=== PATIENT | female | born 1990 | race Caucasian/White ===

== ENCOUNTER → 2020-10-15 13:32 | Outpatient (BNVA) | payer MEDICAID, SELFPAY | PROVIDERS: Family Provider Family Medicine; Visit Provider Obstetrics & Gynecology | DX: Z32.01 Encounter for pregnancy test, result positive (principal) | CPT/HCPCS: 81025 ==

== ENCOUNTER → 2020-11-07 13:39 | Outpatient (BNVA) | payer MEDICAID, SELFPAY | PROVIDERS: Family Provider Family Medicine; Visit Provider Obstetrics & Gynecology | DX: O26.891 Other specified pregnancy related conditions, first trimester (principal); Z67.91 Unspecified blood type, Rh negative | CPT/HCPCS: 80307; 84315; 85027; 86592; 86762; 86803; 86850; 86900; 87086; 87340 ==

== ENCOUNTER → 2020-11-19 10:55 | Outpatient (BNVA) | payer MEDICAID, SELFPAY | PROVIDERS: Family Provider Family Medicine; Visit Provider Obstetrics & Gynecology | DX: O26.891 Other specified pregnancy related conditions, first trimester (principal); Z67.91 Unspecified blood type, Rh negative; Z3A.00 Weeks of gestation of pregnancy not specified | CPT/HCPCS: 81000; 87491; 87591 ==

== ENCOUNTER → 2020-12-19 15:45 | Outpatient (BNVA) | payer MEDICAID, SELFPAY | PROVIDERS: Family Provider Family Medicine; Visit Provider Nurse Practitioner Women's Health | DX: O26.891 Other specified pregnancy related conditions, first trimester (principal); Z67.91 Unspecified blood type, Rh negative; Z3A.00 Weeks of gestation of pregnancy not specified | CPT/HCPCS: 81000 ==

== ENCOUNTER → 2021-01-09 12:05 | Outpatient (BNVA) | payer MEDICAID, SELFPAY | PROVIDERS: Family Provider Family Medicine; Visit Provider Obstetrics & Gynecology | DX: Z34.80 Encounter for supervision of other normal pregnancy, unspecified trimester (principal) | CPT/HCPCS: 81000 ==

== ENCOUNTER → 2021-02-12 13:01 | Outpatient (BNVA) | payer MEDICAID, SELFPAY | PROVIDERS: Family Provider Family Medicine; Visit Provider Nurse Practitioner Women's Health | DX: O44.00 Complete placenta previa NOS or without hemorrhage, unspecified trimester (principal); O26.891 Other specified pregnancy related conditions, first trimester; Z67.91 Unspecified blood type, Rh negative; O44.40 Low lying placenta NOS or without hemorrhage, unspecified trimester; Z3A.00 Weeks of gestation of pregnancy not specified | CPT/HCPCS: 81000 ==

== ENCOUNTER → 2021-03-05 09:50 | Outpatient (BNVA) | payer MEDICAID, SELFPAY | PROVIDERS: Family Provider Family Medicine; Visit Provider Obstetrics & Gynecology | DX: Z34.80 Encounter for supervision of other normal pregnancy, unspecified trimester (principal) | CPT/HCPCS: 81000; 82950; 85027; 86850 ==

== ENCOUNTER → 2021-03-19 11:06 | Outpatient (BNVA) | payer MEDICAID, SELFPAY | PROVIDERS: Family Provider Family Medicine; Visit Provider Obstetrics & Gynecology | DX: Z34.80 Encounter for supervision of other normal pregnancy, unspecified trimester (principal); Z78.9 Other specified health status | CPT/HCPCS: 81000 ==

== ENCOUNTER → 2021-04-02 09:50 | Outpatient (BNVA) | payer MEDICAID, SELFPAY | PROVIDERS: Family Provider Family Medicine; Visit Provider Obstetrics & Gynecology | DX: Z34.80 Encounter for supervision of other normal pregnancy, unspecified trimester (principal) | CPT/HCPCS: 81000 ==

== ENCOUNTER → 2021-05-02 15:40 | Outpatient (BNVA) | payer MEDICAID, SELFPAY | PROVIDERS: Family Provider Family Medicine; Visit Provider Nurse Practitioner Women's Health | DX: Z34.80 Encounter for supervision of other normal pregnancy, unspecified trimester (principal) | CPT/HCPCS: 84315; 87081 ==

== ENCOUNTER → 2021-05-08 14:35 | Outpatient (BNVA) | payer MEDICAID, SELFPAY | PROVIDERS: Family Provider Family Medicine; Visit Provider Nurse Practitioner Women's Health | DX: Z34.80 Encounter for supervision of other normal pregnancy, unspecified trimester (principal) | CPT/HCPCS: 81000 ==

== ENCOUNTER → 2021-05-17 13:11 | Outpatient (BNVA) | payer MEDICAID, SELFPAY | PROVIDERS: Family Provider Family Medicine; Visit Provider Obstetrics & Gynecology | DX: Z34.80 Encounter for supervision of other normal pregnancy, unspecified trimester (principal) | CPT/HCPCS: 87635 ==

== ENCOUNTER 2021-05-18 13:20 | Inpatient (IN) | payer MEDICAID, SELFPAY ==
[2021-05-18] VITALS (82 sets, daily range): BP systolic 98–158; BP diastolic 55–94; PULSE 80–196; RESP 16–18; TEMP 36–37.2; O2SAT 98–100; BMI 25.6
[2021-05-18 12:27] LABS: Actim Prom Positive
--- NOTE | 2021-05-18 13:18 | PM.OBGYHP ---
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 Denies bleeding and contractions are rare. Pt. relates good fm and LOF. Testing here was pos for rupture. FHT's baseline 140's with category 1 strip. 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 Estimated Delivery Date Method Current WG Current Estimate 05/27/21 LMP (Certain) 38w 5d Other Estimates 05/29/21 Ultrasound #1 38w 3d Expected Delivery Route/Plan Vaginal Specific Issues/Plans Grand multiparity with this delivery Rh NEGATIVE-RhoGam candidate Vitals/I&O/Wt Last Vital Signs Temp 96.8 F L 05/18/21 13:16 Pulse 98 05/18/21 13:08 BP 128/58 05/18/21 13:08 Weight last 48 hrs Weight 154 lb Physical Exam Const: COMMON NORMALS: no acute distress, patient oriented x3 and healthy appearing GENERAL APPEARANCE: cooperative and comfortable HENMT: COMMON NORMALS: normocephalic and moist oral mucous membranes Eye: COMMON NORMALS: Equal, round and reactive pupils present, EOMs intact bilaterally, conjunctivae normal and no scleral icterus Neck/C-Spine: COMMON NORMALS: no lymphadenopathy and supple GENERAL: Yes normal visual inspection and Yes trachea midline Resp: COMMON NORMALS: normal respiratory effort and No use of accessory muscles EFFORT & INSPECTION: Yes able to speak in complete sentences Cardio: COMMON NORMALS: regular rate JUGULAR VENOUS DISTENTION: no JVD GI: INSPECTION: Yes normal to inspection and Yes other (gravid uterus cwd) : COMMON NORMALS: Yes normal external appearance EXTERNAL FEMALE EXAM: Yes normal appearance of the urethra MANUAL OB EXAM: dilated 1 cm, effaced 50% and station -2 Extremity: COMMON NORMALS: normal to inspection, full ROM and no clubbing, cyanosis or edema Neuro: COMMON NORMALS: patient oriented x3, moves all extremities, no focal motor deficits, no sensory deficits noted and gait normal SENSORIUM/ORIENTATION: Yes alert Psych: COMMON NORMALS: mental status grossly normal, Normal thought process present, cooperative and normal affect Skin: COMMON NORMALS: no rashes or lesions noted and turgor normal Data : 05/18/21 12:40 A&P Assessment and plan (1) Spontaneous rupture of amniotic membranes: plan admission and pitocin induction of labor Status: Acute (2) Grand multiparity: anticipate , plans epidural, increased risk for hemorrhage Status: Acute (3) Supervision of other normal : Status: Acute (4) Rh negative status during : give rhogam as indicated Status: Acute Qualifiers: Trimester: first trimester Qualified Code(s): O26.891 - Other specified related conditions, first trimester; Z. - Unspecified blood type, Rh negative Attestations Medical Necessity Statement*: SROM at 38 weeks gestation admitted for labor induction Coding Level of Care Code Acute Authorization Manager for Chg Fwd Diagnoses Spontaneous rupture of amniotic membranes Grand multiparity Z64.1 Supervision of other normal Z34.80 Rh negative status during O26.891; Z67.91 Trimester: first trimester
[2021-05-18 13:23] LABS: Basophils % 0.4 %; Eosinophils # 0.1 10^3/uL (0.0-0.8); Eosinophils % 0.5 %; Hemoglobin 12.2 g/dL (11.5-15.3); Lymphocytes # 1.1 10^3/uL (0.8-4.8); Lymphocytes % 10.5 %; Mean Corpuscular Hemoglobin 30.3 pg (28.0-34.0); Mean Platelet Volume 13.2 fL (7.4-10.4); Monocytes # 0.7 10^3/uL (0.2-0.9); Monocytes % 6.5 %; Neutrophils # 8.57 10^3/uL (1.8-7.7); Neutrophils % 81.2 %; Nucleated Red Blood Cells % 0 %; Platelet Count 131 10^3/cmm (130-400); Red Blood Count 4.02 10^6/uL (4.1-5.3); Red Cell Distribution Width 13.5 % (12.1-15.1); White Blood Count 10.5 10^3/uL (4.0-10.0)
[2021-05-18] MEDS: dextrose 5%-lactated ringers 1,000 ML 125 ML IV (13:32)
[2021-05-18] MEDS: oxytocin 30 UNIT/500 ML BAG IV (13:32)
[2021-05-18] MEDS: lactated ringers 1,000 ML 999 ML IV ×2 (19:36→22:13)
--- NOTE | 2021-05-18 20:20 | ANES.PREANE2 ---
Documented by User: Janene Flores CRNA 05/18/21 20:42 Pre-Anesthetic Assessment Pre-Anesthetic Assessment: Height/Weight: Height 1.65 m Weight 69.853 kg Temp Pulse Resp BP Pulse Ox 97.3 F L 129 H 18 127/68 100 05/18/21 19:40 05/18/21 20:38 05/18/21 20:12 05/18/21 20:37 05/18/21 20:38 Preop Diagnosis: IUP Proposed Procedure: labor epidural Was Beta Jena taken within 24 hours: N/A Was Clonidine taken within 24 hours: N/A Social: Social History: No alcohol and No tobacco Exam: Pre-Anes Outpt Exam: alert, oriented x 3 and regular rate & rhythm Airway: Submandibular: WNL Cervical ROM: WNL MP: 2 Dentition: Full History/ROS: No significant history except as noted Pulmonary: Pulmonary: None reported CV/HEM: CV/HEM: None reported : : None reported Hepatic: Hepatic: None reported GI: GI: None reported Metabolic: Metabolic: None reported Musc/skel: Musc/skel: None reported Neuropsych: Neuropsych: None reported Anesthetic Plan: ASA status: 2 Anesthesia: Anesthesia Evaluation and Regional (specify below) (epidrual) Risk of > 500 ml blood loss (7ml/kg in children): No Meds/Allergies Current Medications: Current Medications Generic Name Dose Route Start Last Admin Trade Name Freq PRN Reason Stop Dose Admin Fentanyl 25 - 100 mcg 05/18/21 20:05 05/18/21 20:12 Fentanyl 50 Mcg/ Ml Inj 2ml IVP 50 mcg Q1H PRN Administration SEVERE PAIN Oxytocin 30 unit in 500 ml s @ 2 mls/hr 05/18/21 13:15 05/18/21 16:56 Pitocin IV 18 milliunit/min .Q24H NATHANIEL 18 mls/hr Titration Protocol 2 MILLIUNIT/MIN Dextrose/Lactated Ringer's 1,000 mls @ 125 m ls/hr 05/18/21 13:15 05/18/21 19:36 Dextrose 5%-Lact ated Ringers IV 0 mls/hr .Q8H NATHANIEL Infusion Lactated Ringer's 1,000 mls @ 999 m ls/hr 05/18/21 19:21 05/18/21 19:36 Lactated Ringers IV 999 mls/hr .Q1H1M PRN Administration See label comment s PFSH Anesthesia PFSH: Medical History No pertinent past medical history Denies diabetes, asthma, hypertension, seizures, DVT/PE PMD: None Surgical History No pertinent past surgical history Family History Mother Hypertension Grandmother Breast cancer Maternal--dx age unknown. at age 90 Stroke Paternal Denies family history of Colon cancer Ovarian cancer Diabetes Heart disease Hypercholesteremia Uterine cancer Thyroid disease Female Reproductive History: : 5 Data Anesthesia CBC & Chem 7: 05/18/21 12:40 Other Labs: Laboratory Results - last 48 hr 05/18/21 05/18/21 12:10 12:40 WBC 10.5 H RBC 4.02 L Hgb 12.2 Hct 37.0 MCV 92.0 MCH 30.3 MCHC 33.0 RDW 13.5 Plt Count 131 MPV 13.2 H Neut % (Auto) 81.2 Lymph % (Auto) 10.5 [place] % (Auto) 6.5 Eos % (Auto) 0.5 Baso % (Auto) 0.4 Neut # (Auto) 8.57 H Lymph # (Auto) 1.1 [place] # (Auto) 0.7 Eos # (Auto) 0.1 Baso # (Auto) 0.0 Nucleated RBC % (auto) 0 Nucleated RBCs # 0.0 Insulin-like GF I Positive Cardiac Studies: No Data to Display Documented by User: Keven Sosa 05/19/21 07:27 PFSH Anesthesia PFSH: Medical History No pertinent past medical history Denies diabetes, asthma, hypertension, seizures, DVT/PE PMD: None Surgical History No pertinent past surgical history Family History Mother Hypertension Grandmother Breast cancer Maternal--dx age unknown. at age 90 Stroke Paternal Denies family history of Colon cancer Ovarian cancer Diabetes Heart disease Hypercholesteremia Uterine cancer Thyroid disease Data Anesthesia CBC & Chem 7: 05/18/21 12:40 Cardiac Studies: No Data to Display
--- NOTE | 2021-05-18 20:42 | P.ANES_ITS ---
Documented by User: Janene Flores CRNA 05/18/21 20:43 Anesthesia Procedures Procedure/Date: 05/18/21 Epidural: Time Out Performed: Yes Consents Signed: Procedure Consent and No Consent Needed Consent: from patient, risks and benefits reviewed and patient agrees to proceed Lumbar Level: L3-L4 Epidural position: sitting Epidur al procedure: sterile prep of area, 1% lidocaine to numb the area, 18 g needle, neg for paresthesia, test dose given, 1.5% xylocaine 1:200k epi, placed PCEA, no systemic response, sterile dressing applied, L.U.D. no apparent complications and 0.2% Ropiavacaine @ mls/hr (13) Additional Comments: CONCEPCIÓN 6.5 taped at 12 at skin Documented by User: Keven Sosa 05/19/21 07:27 Anesthesia Procedures Procedure/Date: 05/19/21
[2021-05-18] MEDS: lactated ringers 500 ML 999 ML IV (21:33)
--- NOTE | 2021-05-18 22:42 | P.PCNOB_ITS ---
Delivery Note: Date of delivery: May 18, 2021 Pre-Delivery Course: uncomplicated pitocin induction for Srom. Pt progressed to complete cervical dilation with an epidural for anesthesia. FHT's remained category 1. She delivered a viable male from the MARIA G position with a tight nuchal cord that was clamped x 2 and cut prior to delivery. Babys nares and OP were superficially suctioned with a bulb suction and baby was placed on the maternal abdomen. Placenta was delivered spontaneously intact with a 3 vc. EBL was 300ml. Superficial skin tear at the introitus was reapproximated with 3-0vicryl in a running fashion. Uterus was noted to be firm and just below the umbilicus. Both mom and baby are stable post delivery. Caervix and rectum intact. Delivery: see above Post-Delivery Status: stable History History History 5 Term 3 Miscarriages/Ectopic 0 1 Living Children 5 A&P Assessment and plan (1) Spontaneous rupture of amniotic membranes: Status: Acute (2) Grand multiparity: moniter closely for bleeding Status: Acute (3) Supervision of other normal : routine care Status: Acute (4) Rh negative status during : rhogam as indicated Status: Acute Qualifiers: Trimester: first trimester Qualified Code(s): O26.891 - Other specified related conditions, first trimester; Z67.91 - Unspecified blood type, Rh negative (5) Normal spontaneous vaginal delivery: see orders Status: Acute Coding Level of Care Code Acute Communication And Outreach Manager for Chg Fwd Diagnoses Spontaneous rupture of amniotic membranes Grand multiparity Z64.1 Supervision of other normal Z34.80 Rh negative status during O26.891; Z67.91 Trimester: first trimester Normal spontaneous vaginal delivery O80
[2021-05-19] VITALS (22 sets, daily range): BP systolic 99–116; BP diastolic 56–70; PULSE 74–109; RESP 14–18; TEMP 36.7–37.5
[2021-05-19] MEDS: HYDROcodone-acetaminophen 5-325 mg Tablet PO (06:33)
--- NOTE | 2021-05-19 07:27 | ANE.PACU2 ---
Inpatient post-anesthesia follow up: Airway intact: Yes Vital signs: Temperature 98.6 F Pulse Rate 104 Respiratory Rate 14 Blood Pressure 116/70 Pulse Oximetry 100 Oxygen Delivery Me thod Room Air Oxygen Flow Rate Fraction of Inspir ed Oxygen Hydration adequate: Yes Nausea and vomiting: No Pain level: 2 Mental status: Baseline
[2021-05-19] MEDS: ibuprofen 800 mg tablet PO ×3 (08:27→20:19)
[2021-05-19] MEDS: prenatal vitamin Capsule 1 CAP PO (08:27)
[2021-05-19] MEDS: docusate sodium 100 mg Capsule PO ×2 (08:27→19:13)
[2021-05-19] MEDS: lanolin oint 7 gm 1 APPLIC TOPICAL (08:56)
[2021-05-19] MEDS: benzocaine-menthol 78 gm Canister 1 SPRAY TOPICAL (08:58)
--- NOTE | 2021-05-19 12:53 | PM.OBGYPN ---
TATTOO ARTIST Subjective Subjective: Interval history: Doing well, no complaints. wants to go home tomorrow. PP day #1 Vitals/I&O/Wt Last Vital Signs Temp 98.0 F 05/19/21 12:00 Pulse 82 05/19/21 11:58 Resp 18 05/19/21 12:00 BP 110/63 05/19/21 11:58 Pulse Ox 100 05/18/21 21:53 05/18/21 05/19/21 05/19/21 22:59 06:59 14:59 Intake Total 2060.400 / 2063.333 1000 / 3063.333 480 / 480 Output Total 150 / 150 850 / 1000 1400 / 1400 Balance 1910.400 / 1913.333 150 / 2063.333 -920 / -920 Weight last 48 hrs Weight 154 lb Physical Exam Const: COMMON NORMALS: no acute distress, patient oriented x3 and alert GENERAL APPEARANCE: cooperative and comfortable ORIENTATION/CONSCIOUSNESS: Yes awake HENMT: COMMON NORMALS: normocephalic and moist oral mucous membranes HEAD & SCALP: normocephalic Eye: COMMON NORMALS: EOMs intact bilaterally, conjunctivae normal and no scleral icterus CONJUNCTIVA: Yes conjunctivae normal Neck/C-Spine: COMMON NORMALS: no JVD Lymph: LYMPHATIC: no lymphadenopathy noted Resp: COMMON NORMALS: normal respiratory effort and No use of accessory muscles EFFORT & INSPECTION: Yes able to speak in complete sentences Cardio: COMMON NORMALS: no JVD and regular rate RATE: regular rate GI: COMMON NORMALS: Soft to palpation and non-tender PALPATION: Yes Soft to palpation : UTERUS PALPATION: Yes Other OB uterine findings (ff and involuting well, 2 fb below u and nontender) Extremity: COMMON NORMALS: normal to inspection, full ROM and no pedal edema Neuro: COMMON NORMALS: patient oriented x3, no focal motor deficits, no sensory deficits noted and gait normal SENSORIUM/ORIENTATION: Yes alert Psych: COMMON NORMALS: mental status grossly normal and cooperative ATTITUDE: Yes calm Skin: COMMON NORMALS: no rashes or lesions noted and turgor normal GENERAL SKIN EXAM: no rashes or lesions noted, turgor normal and dry skin Urinary Catheter Management^: Edge Latex: Cath Placed During This Visit: yes, but has since been removed by the nurse Reason for Continuing Indwelling Catheter: Required Immobilization for Trauma or Surgery or Anesthesia Urinary Catheter Date of Insertion: 05/18/21 Urinary Catheter Time of Insertion: 21:38 Date Urinary Catheter Removed: 05/19/21 Time Urinary Catheter Discontinued: 21:55 Data : 05/19/21 18:00 A&P Assessment and plan (1) Normal spontaneous vaginal delivery: routine pp care Status: Acute (2) Spontaneous rupture of amniotic membranes: Status: Resolved (3) Grand multiparity: delivered Status: Resolved (4) Rh negative status during : rhogam as indicated Status: Acute Qualifiers: Trimester: first trimester Qualified Code(s): O26.891 - Other specified related conditions, first trimester; Z67.91 - Unspecified blood type, Rh negative Attestations Medical Necessity Statement*: pp day #1 Coding Level of Care Code Acute Biztalk Software Developer for Chg Fwd Exam Comprehensive Diagnoses Normal spontaneous vaginal delivery O80 Spontaneous rupture of amniotic membranes Grand multiparity Z64.1 Rh negative status during O26.891; Z67.91 Trimester: first trimester
[2021-05-19 18:15] LABS: Hemoglobin 11.3 g/dL (11.5-15.3); Mean Corpuscular HGB Conc 32.3 g/dL (30.0-36.0); Mean Corpuscular Hemoglobin 30.8 pg (28.0-34.0); Mean Corpuscular Volume 95.4 fl (81-99); Mean Platelet Volume 12.7 fL (7.4-10.4); Platelet Count 130 10^3/cmm (130-400); Red Blood Count 3.67 10^6/uL (4.1-5.3); Red Cell Distribution Width 13.8 % (12.1-15.1); White Blood Count 11.3 10^3/uL (4.0-10.0)
[2021-05-20 04:33] VITALS: BP 119/77; PULSE 71; RESP 16; TEMP 36.8
[2021-05-20] MEDS: prenatal vitamin Capsule 1 CAP PO (09:03)
[2021-05-20] MEDS: ibuprofen 800 mg tablet PO (09:03)
[2021-05-20] MEDS: docusate sodium 100 mg Capsule PO (09:03)
[2021-05-20 09:50] VITALS: BP 119/77; PULSE 83; RESP 16; TEMP 36.8; O2SAT 98
--- NOTE | 2021-05-20 10:00 | P.DS_ITS ---
Discharge Providers CAPITAL EQUIPMENT SPECIALIST Date of Admission: 05/18/21 13:20 Date of Discharge: 05/20/21 Attending Provider at Admission: Gaby Zhu Attending Provider at Discharge: Gaby Zhu Diagnoses at Discharge Discharge Diagnosis (1) Spontaneous rupture of amniotic membranes: Status: Resolved Permanent problem details: delivered via (2) Grand multiparity: Status: Resolved Permanent problem details: delivered (3) Supervision of other normal : Status: Resolved (4) Rh negative status during : Status: Acute Permanent problem details: rhogam as indicated Qualifiers: Trimester: first trimester Qualified Code(s): O26.891 - Other specified related conditions, first trimester; Z67.91 - Unspecified blood type, Rh negative (5) Normal spontaneous vaginal delivery: Status: Acute Permanent problem details: pp day #2 Reason for Visit Reason for Visit: Vaginal Discharge Hospital Course Hospital Course Admitted at term with SROM and induced with pitocin. Delivered a viable male without complication with 1st degree laceration at the introitus that was repaired with 3-0vicryl. EBL 300 ml. PP course uncomplicated and discharged on her pp day #2 to home. Mom and baby boy stable. Information Peripartum Data: Delivery Method: Vaginal Physical Exam Narrative: EXAM NARRATIVE: pain controlled, lochia small, no complaints and well. Const: COMMON NORMALS: no acute distress, patient oriented x3 and alert HENMT: COMMON NORMALS: normocephalic and moist oral mucous membranes HEAD & SCALP: normocephalic Eye: COMMON NORMALS: EOMs intact bilaterally, conjunctivae normal and no scleral icterus CONJUNCTIVA: Yes conjunctivae normal Neck/C-Spine: COMMON NORMALS: no JVD Lymph: LYMPHATIC: no lymphadenopathy noted Resp: COMMON NORMALS: normal respiratory effort and No use of accessory muscles EFFORT & INSPECTION: Yes able to speak in complete sentences Cardio: COMMON NORMALS: no JVD and regular rate RATE: regular rate GI: COMMON NORMALS: Soft to palpation and non-tender PALPATION: Yes Soft to palpation and Yes Other GI palpation findings present (uterus firm and involuting well, at 2 fb below u) : OB/EXTERNAL & SPECULUM: other (lochia small and lac healing well) Extremity: COMMON NORMALS: normal to inspection, full ROM and no clubbing, cyanosis or edema Neuro: COMMON NORMALS: patient oriented x3, moves all extremities, no focal motor deficits, no sensory deficits noted and gait normal SENSORIUM/ORIENTATION: Yes alert Psych: COMMON NORMALS: mental status grossly normal and cooperative ATTITUDE: Yes calm Skin: COMMON NORMALS: no rashes or lesions noted and turgor normal GENERAL SKIN EXAM: no rashes or lesions noted and turgor normal Urinary Catheter Management^: Edge Latex: Cath Placed During This Visit: yes, but has since been removed by the nurse Reason for Continuing Indwelling Catheter: Required Immobilization for Trauma or Surgery or Anesthesia Urinary Catheter Date of Insertion: 05/18/21 Urinary Catheter Time of Insertion: 21:38 Date Urinary Catheter Removed: 05/19/21 Time Urinary Catheter Discontinued: 21:55 History History History 5 Term 3 Miscarriages/Ectopic 0 1 Living Children 5 Discharge Data Data Completed and Pending: Labs from last 24 hours 05/19/21 18:00 WBC 11.3 H RBC 3.67 L Hgb 11.3 L Hct 35.0 L MCV 95.4 MCH 30.8 MCHC 32.3 RDW 13.8 Plt Count 130 MPV 12.7 H Vitals: Last Vital Signs Temp 98.3 F 05/20/21 04:33 Pulse 71 05/20/21 04:33 Resp 16 05/20/21 04:33 BP 119/77 05/20/21 04:33 Pulse Ox 100 05/18/21 21:53 Discharge Plan Discharge Patient Disposition: Home Condition: Stable Prescriptions: New ibuprofen 800 mg Tablet 800 mg PO TID Qty: 60 RF: 0 Discontinued prenat.vits,william,[id number] Tablet 1 tab PO DAILY RF: 0 (DME) breast pump [Pump In Style Advanced] Device See Rx Instructions .ROUTE .MEDSUPPLY Qty: 1 RF: 0 Discharge Orders: Discharge Order (Routine); Ordered 05/20/21 Ordered By: Gaby Zhu Discharge Diet: Regular Discharge Activity: Limit activity as instructed Patient Instructions: Depression (DC), and the Working Mom (DC), Expression, Collection and Storage of Breast Milk (DC), How to Hold and Breastfeed Your Baby (DC), and Nipple Soreness (ED), and Plugged Ducts (DC), Preeclampsia and Eclampsia After Delivery (GEN), OB Discharge Report, Opioid Safety, OB Vaginal Deliveries - [facility], Abnormal Bleeding Activity Restrictions/Additional Instructions: *Nothing per vagina x6 weeks *Reference vaginal delivery care notes. Discharge Attestations CAPITAL EQUIPMENT SPECIALIST Time Spent in Discharge Care*: less than 30 min Coding Level of Care Code Acute Copy Center Operator for Chg Fwd Diagnoses Spontaneous rupture of amniotic membranes Grand multiparity Z64.1 Supervision of other normal Z34.80 Rh negative status during O26.891; Z67.91 Trimester: first trimester Normal spontaneous vaginal delivery O80
== END 2021-05-20 16:10 | disposition home or self-care (01) | DRG 807 ==
LOC: OPOB 05-19 08:55 → OBGYN 05-19 08:55
PROVIDERS: Admitting Provider Obstetrics & Gynecology; Family Provider Family Medicine; Visit Provider Obstetrics & Gynecology
DX: O36.0930 Maternal care for other rhesus isoimmunization, third trimester, not applicable or unspecified (principal); Z37.0 Single live birth; O69.2XX0 Labor and delivery complicated by other cord entanglement, with compression, not applicable or unspecified; O70.0 First degree perineal laceration during delivery; Z3A.38 38 weeks gestation of pregnancy
CPT/HCPCS: 12345; 36415; 59025; 59409; 84112; 85025; 85027; 99211; J2795; J3010